=== PATIENT | female | born 1935 | race Caucasian/White ===

== ENCOUNTER 2022-07-17 17:30 | Emergency (ER) | payer MEDICARE, OTHER ==
[~2022-07-17] VITALS: Ht 167.6 cm; Wt 80.5 kg
[~2022-07-17 17:30] MED LIST: ALEN70TA60 PO; ASPI-4 PO; ATOR10TA70 PO; CALC-793 PO; CLON-565 PO; ECHINACEA PO; FISH OIL PO; GARLIC PO; LOP25T PO; MILK THISTLE PO; MSM PO; OLOP30.5 BOTHNARES; VALA500T PO; VITAMIN B COMPLEX PO; ginko biloba PO; glucosamine PO
--- NOTE | 2022-07-17 18:24 | NUR ---
Patient endorsed to Aditi NICKERSON.
[2022-07-17] MEDS ORDERED: diphenhydrAMINE 50 mg/ml inj IV ONE (18:40)
[2022-07-17] MEDS ORDERED: normal saline 1000ml 1,000 ML IV ONE (18:40)
[2022-07-17] MEDS ORDERED: methylPREDNISolone sod succ 125mg/2ml vial IV ONE (18:40)
[2022-07-17] MEDS ORDERED: famotidine/PF 10 mg/ml inj IV ONE (18:40)
[2022-07-17 20:00] VITALS: BP 160/82
== END 2022-07-17 20:39 | disposition home or self-care (01) ==
LOC: ER 17:30
DX: T78.40XA Allergy, unspecified, initial encounter (principal); I10 Essential (primary) hypertension; I48.91 Unspecified atrial fibrillation; Z72.89 Other problems related to lifestyle; Z88.0 Allergy status to penicillin; Z88.1 Allergy status to other antibiotic agents; Z88.5 Allergy status to narcotic agent; Z79.82 Long term (current) use of aspirin; Z79.899 Other long term (current) drug therapy; Z91.013 Allergy to seafood; Z91.011 Allergy to milk products; X58.XXXA Exposure to other specified factors, initial encounter
CPT/HCPCS: 96361; 96374; 96375; 99284; J1200; J2930; J3490; J7030

== ENCOUNTER 2023-02-02 10:20 | Emergency (ER) | payer MEDICARE, OTHER ==
[~2023-02-02] VITALS: Ht 167.6 cm; Wt 79.5 kg
[2023-02-02 10:49] VITALS: BP 150/85; PULSE 84; RESP 20; TEMP 98.7; O2SAT 96
[2023-02-02] MEDS ORDERED: NIRM1TAB PO (14:29)
== END 2023-02-02 14:56 | disposition home or self-care (01) ==
LOC: ER 10:21
DX: U07.1 COVID-19 (principal); I11.0 Hypertensive heart disease with heart failure; Z88.1 Allergy status to other antibiotic agents; Z88.0 Allergy status to penicillin; Z79.899 Other long term (current) drug therapy
CPT/HCPCS: 99283

== ENCOUNTER 2025-03-24 09:38 | Emergency (ER) | payer MEDICARE, OTHER ==
[~2025-03-24] VITALS: Ht 167.6 cm; Wt 82.0 kg
[~2025-03-24 09:38] MED LIST changes: +NIRM1TAB PO
[2025-03-24 09:44] VITALS: TEMP 96.4
--- NOTE | 2025-03-24 10:41 | Physician Documentation ---
History of Present Illness ~ Chief Complaint: Chest Pain Stated Complaint: CP Time Seen by MD: 10:40 Primary Medical Doctor: Dr. Thornton HPI 89-year-old female presenting with chest pain She tells me that she was sitting at home earlier, and had an episode where she felt some discomfort across her upper abdomen. She points underneath her chest on both sides. She took a Tums, and then it went away. Then she was sitting at home later, and and had 2 episodes where she had a brief sharp painful stabbing sensation in the left chest. This lasted for one second or less and then resolved. No associated symptoms at that time. She then checked her blood pressure and noticed that it was elevated. She states it was 140/80. She was concerned so she called her clinic and made an appointment for tomorrow. They told her she should go to the emergency department. Currently she is asymptomatic. Medication Reconciliation Allergies: Coded Allergies: clindamycin (Verified Allergy, Severe, ANAPHILAXIS, 07/17/22) Penicillins (Verified Allergy, Unknown, 01/01/14) codeine (Verified Allergy, Unknown, 01/01/14) erythromycin base (Verified Allergy, Unknown, 01/01/14) pseudoephedrine (Verified Allergy, Unknown, 01/01/14) Scheduled Atorvastatin Calcium (Atorvastatin Calcium), 1 TABLET PO DAILY, (Reported) Calcium Carbonate/Vitamin D3 (Vitamin D3 5,000 Unit Tablet), 500 TABLET PO DAILY, (Reported) Calcium Carbonate/Vitamin D3 (Vitamin D3 5,000 Unit Tablet), 1 TABLET PO DAILY, (Reported) Gabapentin (Gabapentin), 1 CAP PO Q8H, (Reported) Nirmatrelvir/Ritonavir (Paxlovid Co-Pack (Eua)), 3 EACH PO BID Valacyclovir Hcl (Valtrex), 1 TABLET PO DAILY, (Reported) [Fish Oil], 1,000 MG PO DAILY, (Reported) [Garlic], 1,000 MG PO EMI, (Reported) [Milk Thistle], 1,000 MG PO DAILY, (Reported) [Msm], 1,000 MG PO DAILY, (Reported) [Vitamin B Complex], 100 MG PO DAILY, (Reported) [ginko biloba], 120 MG PO DAILY, (Reported) [glucosamine], 200 MG PO DAILY, (Reported) Scheduled PRN Clonazepam (Clonazepam), 1 TABLET PO BID PRN for for anxiety/agitation, (Reported) Olopatadine HCl (Patanase), Unknown Dose BOTHNARES BID PRN for nasal dryness, (Reported) Discontinued Medications Alendronate Sodium* (Fosamax*), 1 TABLET PO Q7D, (Reported) Discontinued Reason: patient no longer taking Aspirin (Coated Aspirin), 1 TABLET PO DAILY, (Reported) Discontinued Reason: patient no longer taking Metoprolol Tartrate* (Lopressor tablet*), 1 TABLET PO BID, (Reported) Discontinued Reason: patient no longer taking [Echinacea], Unknown Dose PO DAILY, (Reported) Discontinued Reason: patient no longer taking Past Medical History Past Medical History: Atrial Fibrillation, Hypertension Past Surgical History: noncontributory Alcohol Use: Occasionally Drug Use: none Lives with: Spouse Lives In: Home Occupation: retired Review of Systems Constitutional: Denies: fever Cardiovascular: Reports: chest pain Physical Exam Vital Signs: Temperature: 96.4, Source: Temporal, Heart Rate: 73, Respiratory Rate: 12, BP: 150/88, Pulse Oximetry: 95, Weight: 82.000 Oxygen Flow Rate: 0 Physical Exam General: This is a pleasant elderly female sitting comfortably in bed, at bedside HEENT: Atraumatic, oropharynx is moist Heart: Regular rate and rhythm, normal-appearing peripheral perfusion Lungs: Clear breath sounds bilateral, normal work of breathing, normal oxygen saturation on room air Chest wall: No reproducible tenderness on palpation of the chest Abdomen: Soft, nondistended, nontender Extremities: Warm and well-perfused, no edema or calf tenderness Neuro: Alert and oriented Psychiatric: Calm and cooperative with exam Progress Results/Orders Results/Orders Orders - HAIR GOLD MD Chest,Two Views (03/24/25 11:08) Completed Orders - HAIR GOLD MD Hs Troponin I W Calculations (03/24/25 11:08) Cbc/Diff (03/24/25 11:08) CMP (03/24/25 11:08) Lipase (03/24/25 11:08) Chest,Two Views (03/24/25 11:08) Man Diff (03/24/25 09:43) Electrocardiogram (03/24/25 09:42) Vital Signs 03/24/25 03/24/25 03/24/25 03/24/25 09:44 10:32 10:37 13:06 Temp 96.4 Pulse 73 73 67 Resp 15 12 12 16 B/P (MAP) 156/89 150/88 (108) 135/74 Pulse Ox 97 95 96 O2 Flow Rate 0 Laboratory Tests Test 03/24/25 09:43 White Blood Count 7.4 Red Blood Count 4.27 Hemoglobin 13.3 Hematocrit 39.8 Mean Corpuscular Volume 93.2 Mean Corpuscular Hemoglobin 31.2 H Mean Corpuscular Hemoglobin Concent 33.5 Red Cell Distribution Width 14.6 H Platelet Count 271 Mean Platelet Volume 7.7 Neutrophils (%) (Auto) 35.4 L Lymphocytes (%) (Auto) 56.9 H Monocytes (%) (Auto) 4.6 Eosinophils (%) (Auto) 2.8 Basophils (%) (Auto) 0.3 Neutrophils # (Auto) 2.6 Lymphocytes # (Auto) 4.2 Monocytes # (Auto) 0.3 Eosinophils # (Auto) 0.2 Basophils # (Auto) 0.0 CBC Comment Differential Total Cells Counted 100 Neutrophils % (Manual) 47.0 Lymphocytes % (Manual) 41.0 Monocytes % (Manual) 7.0 Eosinophils % (Manual) 5.0 Platelet Estimate Normal Red Blood Cell Morphology Normal Basophilic Stippling Sodium Level 143 Potassium Level 3.7 Chloride Level 108 H Carbon Dioxide Level 27.5 Anion Gap 8 Blood Urea Nitrogen 20 H Creatinine 0.72 Estimated GFR/1.73 m2 77 BUN/Creatinine Ratio 27.8 H Glucose Level 127 H Calcium Level 9.2 Total Bilirubin 1.3 H Aspartate Amino Transf (AST/SGOT) 14 Alanine Aminotransferase (ALT/SGPT) 17 Alkaline Phosphatase 58 Troponin I High Sensitivity 4 Total Protein 6.7 Albumin 3.7 Globulin 3.0 Albumin/Globulin Ratio 1.2 Lipase 17 Chemistry Comments EKG/XRAY/CT/US/VASC/MRI EKG : Additional Comment I personally interpreted the EKG and this shows: Sinus rhythm, no STEMI, no acute dysrhythmia Chest X-Ray : Additional Comments I personally interpreted the EKG and this shows: Sinus rhythm, rate 74, QTC 443, T-wave inversion in lead 3 and flattening in AVF, no STEMI Heart Score: Heart Score Response (Comments) Value History Slightly Suspicious 0 EKG Normal 0 Age >65 2 Risk Factors 1 or 2 risk factors 1 Troponin Normal limit 0 Total 3 Medical Decision Making Additional information obtaine: family Findings Spoke to about her symptoms Heart Score: 3 Differential Dx:Considerations: Include: angina, aortic dissection, chest wall pain, CHF, myocardial infarction, pneumonia, pneumothorax, pulmonary embolus Additional Information The patient presents with brief episodes of chest discomfort. At time of my evaluation she is asymptomatic. Her workup was unremarkable, no evidence of ACS or other more dangerous process. I feel that angina, PE, or other dangerous process is unlikely. After shared decision-making conversation, she felt comfortable returning home with ongoing monitoring and strict return precautions. Departure Time of Disposition: 12:26 Disposition: 01 HOME / SELF CARE / HOMELESS Impression: Primary Impression: Chest pain Condition: Improved Discharge Instructions: Nonspecific Chest Pain, Adult Referrals: NO PRIMARY CARE PROVIDER (PCP) Education Educated: Patient, Family Educated regarding: diagnosis, need for follow up Signature Scribe Signature: na Attestation: HAIR Mahan MD Mar 24, 2025 10:41
[2025-03-24] MEDS ORDERED: GABA-530 PO (10:42)
[2025-03-24 11:37] LABS: MEAN PLATELET VOLUME 7.7 FL (7.4-10.4); RED CELL DISTRIBUTION WIDTH 14.6 % (11.5-14.5)
[2025-03-24 11:44] LABS: CREATININE 0.72 MG/DL (0.40-0.90); TOTAL CARBON DIOXIDE 27.5 MMOL/L (24-32); eCRCL 52 ML/MIN; eGFR 77 ML/MIN
--- NOTE | 2025-03-24 12:07 | RADIOLOGY REPORT ---
DI CHEST,TWO VIEWS CLINICAL HISTORY: chest pain COMPARISON: None TECHNIQUE: Frontal and lateral view of the chest was obtained FINDINGS: Lines and Tubes: None Lungs: No focal consolidation. Pleura: No effusion. No pneumothorax. Cardiomediastinal contours: Unremarkable. Atherosclerotic vascular calcifications of the thoracic aorta are noted. Bones: No acute osseous abnormality. IMPRESSION: No acute cardiopulmonary disease.
[2025-03-24 12:23] LABS: EOSINOPHILS % (MANUAL) 5.0 % (0-6); LYMPHOCYTES % (MANUAL) 41.0 % (21-51); MONOCYTES % (MANUAL) 7.0 % (2-12); NEUTROPHILS % (MANUAL) 47.0 % (42-75); PLATELET ESTIMATE NORMAL
[2025-03-24 13:06] VITALS: BP 135/74; PULSE 67; RESP 16; O2SAT 96
--- NOTE | 2025-03-24 15:57 | ELECTROCARDIOGRAPH REPORT ---
[facility] Test Date: 2025-03-24 Test Time: 09:42:17 Pat Name: DEANGELO SNELL Department: EMERGENCY ROOM Room: Gender: F [employer]: : [id number] Requested By: HAIR GOLD Order Number: [id number] Reading MD: Measurements Intervals [place] Rate: 74 P: 52 VA: 184 QRS: -9 QRSD: 97 T: 15 QT: 399 QTc: 443 Interpretive Statements Sinus rhythm Low voltage, precordial leads Borderline T abnormalities, anterior leads Baseline wander in lead(s) II,III,aVR,aVF,V3,V4,V5,V6 Please click the below link to view image of tracing.
== END 2025-03-24 13:08 | disposition home or self-care (01) ==
LOC: ER 09:38
DX: R07.9 Chest pain, unspecified (principal); I10 Essential (primary) hypertension; I48.91 Unspecified atrial fibrillation; Z88.0 Allergy status to penicillin; Z88.1 Allergy status to other antibiotic agents; Z88.5 Allergy status to narcotic agent; Z88.8 Allergy status to other drugs, medicaments and biological substances; Z91.013 Allergy to seafood
CPT/HCPCS: 36415; 71046; 80053; 83690; 84484; 85007; 85025; 93005; 99285